=== PATIENT | female | born 1980 | race Caucasian/White ===

== ENCOUNTER 2021-08-12 23:43 | Emergency (ER) | payer BC ==
[~2021-08-12] VITALS: Ht 167.6 cm; Wt 117.7 kg
[~2021-08-12 23:43] MED LIST: MOBIC15 MG PO; NORCO 325 MG-51 TAB PO; PROZAC60 MG PO
[2021-08-12 23:51] VITALS: TEMP 98.2
[2021-08-12] MEDS ORDERED: DESYREL 50MG50 MG PO (23:54)
[2021-08-12] MEDS ORDERED: ZOLOFT 100MG100 MG PO (23:54)
[2021-08-12] MEDS ORDERED: PRINIVIL40 MG PO (23:54)
[2021-08-12] MEDS ORDERED: CONCERTA27 MG PO (23:54)
[2021-08-12] MEDS ORDERED: COLESTID 1GM1 G PO (23:54)
[2021-08-12] MEDS ORDERED: WELLBUTRIN XL300 M1 PO (23:54)
[2021-08-13 01:08] LABS: BASO # 0.1 K/mm3 (0.0-0.2); BASO % 0.8 % (0.0-2.0); EOS # 0.2 K/mm3 (0.0-0.7); GRAN # 4.3 K/mm3 (1.4-6.5); HEMATOCRIT 39.2 % (37.0-47.0); HEMOGLOBIN 12.7 g/dl (12.5-16.0); LYMPH # 2.2 K/mm3 (1.2-3.4); LYMPH % 28.9 % (20.0-51.0); MEAN CELL VOLUME 87 fl (80.0-100.0); MEAN CORPUSCULAR HEMOGLOBIN 28 pg (27-31); MEAN CORPUSCULAR HGB CONC 32 g/dl (33.0-37.0); MEAN PLATELET VOLUME 9.4 fl (7.4-10.4); MONO # 0.8 K/mm3 (0.1-0.6); PLATELET COUNT 269 K/mm3 (130-400); RED BLOOD COUNT 4.51 M/mm3 (4.10-5.30); REDCELL DISTRIBUTION WIDTH-CV 12.8 % (11.5-14.5)
[2021-08-13 01:27] LABS: ALBUMIN 3.4 gm/dL (3.5-5.0); BILIRUBIN,TOTAL 0.4 mg/dL (0.2-1.2); C-REACTIVE PROTEIN 0.4 mg/dL (0.00-0.50); CALCIUM 8.2 mg/dL (8.4-10.2); CREATININE, serum 0.85 mg/dL (0.57-1.11); POTASSIUM 3.7 mmol/L (3.5-4.5); TOTAL PROTEIN 6.3 gm/dL (6.2-8.1)
[2021-08-13] MEDS ORDERED: ANTIVERT 12.512.5 MG PO (02:17)
[2021-08-13 02:32] VITALS: BP 110/69; PULSE 61
== END 2021-08-13 02:32 | disposition home or self-care (01) ==
LOC: COL.ER 23:43
PROVIDERS: Nurse Practitioner
DX: R51.9 Headache, unspecified (principal); R42 Dizziness and giddiness; Z86.69 Personal history of other diseases of the nervous system and sense organs; Z28.310 Unvaccinated for COVID-19
CPT/HCPCS: J1200; J1630; J1885; J7030